=== PATIENT | male | born 1995 | race Two or more races ===

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

== ENCOUNTER 2017-09-04 13:39 | Emergency (ER) | payer MEDICAID ==
[2017-09-04 14:04] VITALS: BP 129/77
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
[2017-09-04] MEDS ORDERED: IBUPROFEN 800 MG TABLET PO ONE (14:35)
[2017-09-04] MEDS ORDERED: ACETAMINOPHEN 325 MG TABLET PO ONE (14:35)
== END 2017-09-04 15:15 | disposition home or self-care (01) ==
LOC: ER 13:39
DX: S60.221A Contusion of right hand, initial encounter (principal); Y04.2XXA Assault by strike against or bumped into by another person, initial encounter
CPT/HCPCS: 99283

== ENCOUNTER 2017-09-10 22:32 | Emergency (ER) | payer SELFPAY ==
[2017-09-10] MEDS ORDERED: CEFAZOLIN 1 GM/D5W RTU 1 GM/50 ML RTUPB IV ONE (22:41)
[2017-09-10] MEDS ORDERED: DIPH/PERTUSS(ACELL)/TETANUS VAC/PF 0.5 ML SYR (>=10YO) IM ONE (22:41)
[2017-09-10] MEDS ORDERED: FENTANYL CITRATE INJ/PF 100 MCG/2 ML AMPUL IV ONE (22:42)
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
[2017-09-11] MEDS ORDERED: HYDROMORPHONE HCL INJ/PF 2 MG/ML AMPULE IV ONE (00:20)
[2017-09-11 01:35] VITALS: BP 137/82
== END 2017-09-11 01:35 | disposition home or self-care (01) ==
LOC: ER 22:32
DX: S91.302A Unspecified open wound, left foot, initial encounter (principal); X95.9XXA Assault by unspecified firearm discharge, initial encounter; Y93.01 Activity, walking, marching and hiking; Y92.410 Unspecified street and highway as the place of occurrence of the external cause; F17.210 Nicotine dependence, cigarettes, uncomplicated; Z71.6 Tobacco abuse counseling; Z91.030 Bee allergy status
CPT/HCPCS: 71045; 73630; 90715; 29515; J0690; J3010; J1170

== ENCOUNTER 2017-12-07 15:47 | Emergency (ER) | payer MEDICAID ==
[2017-12-07 15:53] VITALS: BP 142/75
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
== END 2017-12-07 17:31 | disposition home or self-care (01) ==
LOC: ER 15:47
DX: S91.302D Unspecified open wound, left foot, subsequent encounter (principal); M79.672 Pain in left foot; W34.00XD Accidental discharge from unspecified firearms or gun, subsequent encounter; F17.210 Nicotine dependence, cigarettes, uncomplicated; Z71.6 Tobacco abuse counseling; Z91.030 Bee allergy status
CPT/HCPCS: 99283; 99406

== ENCOUNTER 2018-03-30 09:21 | Emergency (ER) | payer MEDICAID ==
[2018-03-30 09:29] VITALS: BP 126/73
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
== END 2018-03-30 10:26 | disposition home or self-care (01) ==
LOC: ER 09:21
DX: J06.9 Acute upper respiratory infection, unspecified (principal); R09.81 Nasal congestion; H92.09 Otalgia, unspecified ear; R04.0 Epistaxis; J02.9 Acute pharyngitis, unspecified; R04.2 Hemoptysis; R11.0 Nausea; R19.7 Diarrhea, unspecified; F17.210 Nicotine dependence, cigarettes, uncomplicated; Z88.8 Allergy status to other drugs, medicaments and biological substances; Z91.030 Bee allergy status
CPT/HCPCS: 99283

== ENCOUNTER 2019-02-27 08:58 | Emergency (ER) | payer MEDICAID ==
[2019-02-27 09:12] VITALS: BP 121/68
[2019-02-27] MEDS ORDERED: ACETAMINOPHEN 325 MG TABLET PO ONE (09:30)
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
--- NOTE | 2019-02-27 09:58 | RADIOLOGY REPORT (SQ) ---
EXAM DESCRIPTION: HAND RIGHT 3 VIEWS COMPLETED DATE/TIME: 02/27/2019 9:42 am REASON FOR STUDY: pain injury swelling COMPARISON: 09/04/2017 EXAM PARAMETERS: NUMBER OF VIEWS: Three views. TECHNIQUE: AP, lateral and oblique radiographic images acquired of the right hand. LIMITATIONS: None. FINDINGS: MINERALIZATION: Normal. BONES: No acute fracture or dislocation. Dysmorphic appearance of the 5th metacarpal with mild volar angulation compatible with prior injury. JOINTS: No effusions. SOFT TISSUES: No soft tissue swelling. No foreign body. OTHER: No other significant finding. IMPRESSION: No evidence of acute bony abnormality. No radiopaque foreign body. TECHNICAL DOCUMENTATION: JOB ID: [id number] [employer]- All Rights Reserved Reading location - IP/workstation name: [email or web address]
== END 2019-02-27 10:20 | disposition home or self-care (01) ==
LOC: ER 08:58
DX: S60.221A Contusion of right hand, initial encounter (principal); W22.09XA Striking against other stationary object, initial encounter; Y93.67 Activity, basketball; F17.210 Nicotine dependence, cigarettes, uncomplicated
CPT/HCPCS: 99283; 73130; L3908; J3490

== ENCOUNTER 2019-05-22 19:51 | Emergency (ER) | payer MEDICAID ==
[2019-05-22 20:09] VITALS: BP 137/72
[2019-05-22 22:33] LABS: A TYPE INFLUENZA AG NEGATIVE (NEGATIVE); B INFLUENZA AG NEGATIVE (NEGATIVE)
[2019-05-22] MEDS ORDERED: CETIRIZINE 10 MG TABLET PO ONE (22:44)
[2019-05-22] MEDS ORDERED: ACETAMINOPHEN 325 MG TABLET PO ONE (22:44)
[2019-05-22] MEDS ORDERED: IBUPROFEN 600 MG TABLET PO ONE (22:44)
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
== END 2019-05-23 03:34 | disposition left against medical advice (07) ==
LOC: ER 19:51
DX: J34.89 Other specified disorders of nose and nasal sinuses (principal); R05 Cough; M79.10 Myalgia, unspecified site; R68.83 Chills (without fever); F17.200 Nicotine dependence, unspecified, uncomplicated
CPT/HCPCS: 87070; 87804; 87880; 99281

== ENCOUNTER 2019-07-18 02:51 | Emergency (ER) | payer MEDICAID ==
[2019-07-18] MEDS ORDERED: ONDANSETRON 4 MG TAB.RAPDIS PO ONE (05:17)
[2019-07-18] MEDS ORDERED: OXYCODONE-ACETAMINOPHEN 5-325 MG TABLET PO ONE (05:17)
--- NOTE | 2019-07-18 05:24 | RADIOLOGY REPORT (SQ) ---
EXAM: X-ray hand three or more views CLINICAL DATA: 23-year-old male with right hand pain TECHNICAL DATA: Three x-ray views of the right hand were performed on 07/18/2019 at 3:32 AM. COMPARISONS: 02/27/2019 FINDINGS: There is a mildly displaced transverse fracture through the proximal 3rd of the 1st metacarpal with surrounding soft tissue swelling. There is an old healed fracture of the neck of the right 5th metacarpal. No additional fractures are identified. There is no evidence of dislocation. No lytic or sclerotic bone lesions are identified. Bone mineralization is normal. IMPRESSION: 1. Mildly displaced transverse fracture through the proximal 3rd of the 1st metacarpal of the right hand with surrounding soft tissue swelling. 2. Old healed fracture through the neck of the right 5th metacarpal.
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
[2019-07-18 06:38] VITALS: BP 130/66
== END 2019-07-18 06:38 | disposition home or self-care (01) ==
LOC: ER 02:51
DX: S62.316A Displaced fracture of base of fifth metacarpal bone, right hand, initial encounter for closed fracture (principal); S69.91XA Unspecified injury of right wrist, hand and finger(s), initial encounter; M79.641 Pain in right hand; M79.89 Other specified soft tissue disorders; W06.XXXA Fall from bed, initial encounter; F17.200 Nicotine dependence, unspecified, uncomplicated
CPT/HCPCS: 99283; 73130; S0119